=== PATIENT | male | born 1995 | race Caucasian/White ===

== ENCOUNTER 2020-03-31 14:12 | Outpatient (REF) | payer OTHER, SELFPAY | END 2020-03-31 14:13 | disposition home or self-care (01) | LOC: HO.HMGCLDS 14:12 | PROVIDERS: PCP Internal Medicine; Visit Provider Internal Medicine | DX: Z20.828 Contact with and (suspected) exposure to other viral communicable diseases (principal) | CPT/HCPCS: C9803; U0003 ==

== ENCOUNTER 2020-07-25 13:22 | Outpatient (REF) | payer OTHER, SELFPAY ==
[2020-07-25 16:57] LABS: Alanine Aminotransferase 76 U/L (0-40); Aspartate Amino Transferase 38 U/L (5-37); Cholesterol 221 mg/dL; HDL Cholesterol 37 mg/dL; LDL Cholesterol Calculated 153 mg/dl; Triglycerides 159 mg/dL
== END 2020-07-25 13:23 | disposition home or self-care (01) ==
LOC: HO.HMGCLDS 13:22
PROVIDERS: PCP Internal Medicine; Visit Provider Internal Medicine
DX: E78.2 Mixed hyperlipidemia (principal); E06.3 Autoimmune thyroiditis
CPT/HCPCS: 36415; 80061; 84450; 84460

== ENCOUNTER 2020-09-17 14:19 | Outpatient (REF) | payer OTHER, SELFPAY ==
[2020-09-17 17:02] LABS: Alanine Aminotransferase 71 U/L (0-40); Aspartate Amino Transferase 35 U/L (5-37); Cholesterol 257 mg/dL; HDL Cholesterol 41 mg/dL; LDL Cholesterol Calculated 195 mg/dl; Triglycerides 106 mg/dL
[2020-09-17 17:25] LABS: TSH reflex Free T4 1.59 uIU/mL (0.32-4.0)
[2020-09-18 03:49] LABS: SARS COV2 IgG Negative (Negative)
[2020-09-18 10:36] LABS: Thyroid Peroxidase Antibodies 46 IU/mL (<9)
== END 2020-09-17 14:20 | disposition home or self-care (01) ==
LOC: HO.HMGCLDS 14:19
PROVIDERS: PCP Internal Medicine; Visit Provider Internal Medicine
DX: Z20.822 Contact with and (suspected) exposure to COVID-19 (principal); E66.9 Obesity, unspecified; E78.2 Mixed hyperlipidemia; Z86.39 Personal history of other endocrine, nutritional and metabolic disease
CPT/HCPCS: 36415; 80061; 84443; 84450; 84460; 86376; 86769

== ENCOUNTER 2021-01-20 13:45 | Outpatient (REF) | payer OTHER, SELFPAY ==
[2021-01-20 17:18] LABS: Alanine Aminotransferase 54 U/L (0-40); Albumin Level 4.7 g/dL (3.5-5.0); Alkaline Phosphatase 36 U/L (39-117); Anion Gap 15 (12-20); Aspartate Amino Transferase 28 U/L (5-37); Bilirubin Total 1.3 mg/dL (0.0-1.0); Blood Urea Nitrogen 10 mg/dL (9-16); Calcium 9.5 mg/dL (8.4-10.2); Carbon Dioxide 25 mmol/L (22-29); Chloride 106 mmol/L (96-108); Cholesterol 191 mg/dL; Estimated Glomerular Filt Rate > 60; Glucose Fasting 85 mg/dL (60-99); HDL Cholesterol 39 mg/dL; LDL Cholesterol Calculated 127 mg/dl; Potassium 4.5 mmol/L (3.3-5.1); Sodium 141 mmol/L (135-145); Total Protein 7.6 g/dL (6.5-8.0); Triglycerides 125 mg/dL
[2021-01-20 17:38] LABS: Free T4 (Free Thyroxine) 0.98 ng/dL (0.71-1.85); Thyroid Stimulating Hormone 1.06 uIU/mL (0.32-4.0)
[2021-01-22 04:40] LABS: Thyroid Peroxidase Antibodies 39 IU/mL (<9)
== END 2021-01-20 13:46 | disposition home or self-care (01) ==
LOC: HO.HMGCLDS 13:45
PROVIDERS: PCP Internal Medicine; Visit Provider Internal Medicine
DX: E03.9 Hypothyroidism, unspecified (principal); E66.9 Obesity, unspecified; E78.5 Hyperlipidemia, unspecified; Z86.39 Personal history of other endocrine, nutritional and metabolic disease
CPT/HCPCS: 36415; 80053; 80061; 84439; 84443; 86376

== ENCOUNTER 2021-04-17 12:39 | Outpatient (REF) | payer OTHER, SELFPAY ==
[2021-04-17 14:19] LABS: Alanine Aminotransferase 48 U/L (0-40); Aspartate Amino Transferase 22 U/L (5-37); Cholesterol 183 mg/dL; HDL Cholesterol 40 mg/dL; LDL Cholesterol Calculated 122 mg/dl; Triglycerides 109 mg/dL
== END 2021-04-17 12:40 | disposition home or self-care (01) ==
LOC: HO.HMGCLDS 12:39
PROVIDERS: PCP Internal Medicine; Visit Provider Internal Medicine
DX: E78.5 Hyperlipidemia, unspecified (principal); E66.9 Obesity, unspecified; R05.8 Other specified cough; J45.909 Unspecified asthma, uncomplicated; Z23 Encounter for immunization
CPT/HCPCS: 36415; 80061; 84450; 84460

== ENCOUNTER 2021-06-09 12:48 | Outpatient (REF) | payer OTHER, SELFPAY ==
--- NOTE | 2021-06-09 17:31 | PFT_ITS ---
Forced vital capacity, FEV1, FEF 25-75 are all normal. MVV is 79, which is slightly decreased. Post bronchodilator therapy, there is no significant change. Total lung capacity 103 and residual volume 77. Diffusion capacity 96%. CONCLUSION: Normal pulmonary function test. No evidence of obstructive or restrictive pulmonary disorder. MD ESTHER Renee/MODL / [id number]
== END 2021-06-09 12:49 | disposition home or self-care (01) ==
LOC: HO.RESP 12:48
PROVIDERS: PCP Internal Medicine; Visit Provider Internal Medicine
DX: R05.8 Other specified cough (principal); J45.909 Unspecified asthma, uncomplicated
CPT/HCPCS: 94060; 94727; 94729

== ENCOUNTER 2023-11-02 11:04 | Outpatient (AMB) | payer OTHER, SELFPAY ==
--- NOTE | 2023-11-02 11:15 | MHC.OFFWIV ---
Intake Vital Signs 11/02/23 11:16 Height 6 ft 2 in Weight 252 lb BMI 32.4 BP 122/80 Blood Pressure Location Rt brachial Position Sitting Pulse 73 Pulse Source Pulse Oximeter Temp 98.2 F Temp Source Oral Pulse Oximetry (%) 98 Oxygen Delivery Method Room Air Intake Visit Reasons: upper back pain Intake Note: pt c/o upper back pain Patient Tobacco Use Status: Never used Tobacco Allergies aloe [ALOE] Allergy (Mild, Verified 11/02/23 11:16) ITCHY SKIN WHEN APPLIED TO SUN BURN Do you need a note to return to daycare/school/sports/work: No HPI HPI Comments History of Present Illness Details This is a 27-year-old male with a past medical history of hyperlipidemia presenting for evaluation of right upper back pain that he has had since Tuesday. 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 Tuesday evening the patient developed a discomfort in his right upper back that he describes as an aching sensation that is worse when he takes a deep breath. Patient denies having any fevers, chills, cough, shortness breath, chest pain or abdominal pain. Patient has not taken any medication for treatment of this aching pain. [facility] Medical History Chronic rhinitis Deviated nasal septum Seasonal allergies Dyslipidemia H/O Mima thyroiditis Exposure to COVID-19 virus Obesity (BMI 30.0-34.9) Surgical History Hx of appendectomy Family History Father Medical history non-contributory Mother COPD (chronic obstructive pulmonary disease) Diabetes mellitus Hyperlipidemia Lung nodules Depression Sister No problems noted. 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 Current occupational exposures/hazards: No Review of Systems Const All systems reviewed & are unremarkable except as noted in HPI and below Denies chills, Denies fatigue and Denies fever(s) Eyes Reports no additional complaints ENT Reports no additional complaints Card Reports no additional complaints Resp Reports no additional complaints GI Reports no additional complaints Reports no additional complaints Musc Reports back pain (right upper) Skin/Breast Reports system reviewed and no additional complaints, except as documented Neuro Reports no additional complaints Psych Reports no additional complaints Endo Reports no additional complaints and Denies fatigue Physical Exam Vital Signs: Last Vital Signs Temp 98.2 F 11/02/23 11:16 Pulse 73 11/02/23 11:16 BP 122/80 11/02/23 11:16 Pulse Ox 98 11/02/23 11:16 Oxygen Delivery Method Room Air 11/02/23 11:16 BMI result Body Mass Index 32.4 Patient is afebrile and is not hypoxic. Const General: cooperative, healthy appearing, comfortable, no acute distress, well developed, alert, awake and Physically active Nutritional Appearance: well nourished Orientation/consciousness: patient oriented x3 Limitations: no limitations General: Yes no CVA tenderness Back/Spine/Pelvis Back: no CVA tenderness Cervical Spine: normal cervical lordosis Thoracic/Lumbar Spine: thoracic and lumbar spine normal to inspection, paraspinal muscle tenderness (right medial rhomboid musculature) on the right, No thoracic spinal tenderness and No lumbar spinal tenderness Skin General skin exam: no rashes or lesions noted Neuro General: patient oriented x3 Gait exam (Neuro): Normal gait present Motor exam (neuro): 5/5 motor strength present throughout (upper extremities bilaterally) Psych Appearance: grossly normal Mental Status: mental status grossly normal Affect: Anxious affect present Insight: Good insight present (Psych) Judgement: Good judgement present (Psych) Assessment & Plan Assessment & Plan (1) Rhomboid muscle strain: Comment: There is no bony pain and no evidence of a fever or hypoxia and therefore imaging will be deferred at this time. Code(s): S29.012A - Strain of muscle and tendon of back wall of thorax, initial encounter Qualifiers: Encounter type: initial encounter Qualified Code(s): S29.012A - Strain of muscle and tendon of back wall of thorax, initial encounter Plan: Naprosyn 500 mg q.12 hours x7 days. Patient will follow up with his primary care provider if his symptoms are not improving in 7-10 days. Medications: New naproxen (Naprosyn) 500 mg PO BID 20 tabs 0RF Coding Level of Care Code Est Pt Level 3 (46840) Diagnoses Strain of rhomboid muscle, initial encounter S29.012A Encounter type: initial encounter Time Spent (min) 20
[2023-11-02 11:16] VITALS: BP 122/80; PULSE 73; TEMP 36.8; O2SAT 98; BMI 32.4
== END 2023-11-02 12:08 | disposition home or self-care (01) ==
PROVIDERS: PCP Internal Medicine; Visit Provider Physician Assistant
DX: S29.012A Strain of muscle and tendon of back wall of thorax, initial encounter (principal)
CPT/HCPCS: 99213

== ENCOUNTER 2023-11-13 19:23 | Emergency (ER) | payer OTHER, SELFPAY ==
--- NOTE | ~2023-11-13 | CT_ITS ---
EXAMINATION: CT ABDOMEN AND PELVIS WITHOUT CONTRAST CLINICAL INFORMATION: Lower abdominal, right flank pain COMPARISON: None available. TECHNIQUE: Multidetector volumetric imaging was performed from the superior aspect of the liver through the pubic symphysis. Sagittal and coronal reformatted images were obtained on the technologist's workstation. This CT examination was performed using dose optimization techniques as appropriate, variously including the following: *Automated exposure control *Adjustment of mA and/or kV according to patient size (this includes techniques or standardized protocols for targeted exams where dose is matched to indication/reason for exam; i.e. extremities or head) *Use of iterative reconstruction technique DLP: 738 mGy-cm FINDINGS: LUNG BASES: Unremarkable. ABDOMINAL AND PELVIC WALL: Unremarkable. LIVER AND BILIARY TREE: Hepatic steatosis. Liver is enlarged measuring 17.49 m in the craniocaudal dimension. GALLBLADDER: Unremarkable. PANCREAS: Unremarkable. SPLEEN: Unremarkable. ADRENAL GLANDS: Unremarkable. KIDNEYS AND URETERS: Unremarkable. GASTROINTESTINAL TRACT: Colonic diverticulosis no findings of diverticulitis. Appendix is surgically absent. VASCULAR: Unremarkable. LYMPH NODES/PERITONEUM: No lymphadenopathy. FREE FLUID: None. BLADDER: Unremarkable. PELVIC VISCERA: Unremarkable. OSSEOUS STRUCTURES: Unremarkable. CT/CT abdomen pelvis wo IV con IMPRESSION: * No acute intra-abdominal abnormality. * Hepatomegaly and hepatic steatosis.
[2023-11-13 19:32] VITALS: BP 143/84; PULSE 84; RESP 18; TEMP 36.5; O2SAT 97; BMI 32.5
--- NOTE | 2023-11-13 19:34 | ED.GENADULT ---
HPI - General Adult General Chief complaint: Abdominal Pain Stated complaint: abdominal pain Time Seen by Provider: 11/13/23 22:16 Source: patient Mode of arrival: ambulatory Limitations: no limitations History of Present Illness ED Provider: DR. Atkins HPI narrative: 27-year-old male presented for evaluation of lower abdominal pain. Started about 4 days ago localized to the right lower quadrant area, pain now is more diffuse to lower abdomen has been constant for the past 4 days and progressively getting worse, pain now is radiating to the right flank area, no dysuria, no frequency urination, no hematuria, no fever, no chills, no urethral discharge, sexually not active. No nausea, no vomiting, no diarrhea, last bowel movement was this morning, passing flatus. Patient was evaluated recently at a walk-in clinic for pleuritic chest pain and was diagnosed with musculoskeletal pain that is improved now, no CP, no SOB. History of appendectomy in 2018. Related Data Home Medications ?Medication ?Instructions ?Recorded ?Confirmed epinephrine 0.3 mg/0.3 mL ml IM 11/02/23 injection, auto-injector Previous Rx's ?Medication ?Instructions ?Recorded naproxen 500 mg tablet (Naprosyn) 500 mg PO BID #20 tabs 11/02/23 Allergies Allergy/AdvReac Type Severity Reaction Status Date / Time aloe [ALOE] Allergy Mild ITCHY SKIN Verified 11/13/23 19:35 WHEN APPLIED TO SUN BURN Review of Systems Review of Systems: All other systems are reviewed and are negative Constitutional: Reports as per HPI and Reports no additional constitutional complaints Eyes: Reports as per HPI and Reports no additional eye complaints Reports system reviewed and no additional complaints, except as documented Cardiovascular: Reports as per HPI and Reports no additional cardiovascular complaints Respiratory: Reports as per HPI and Reports no additional respiratory complaints Gastrointestinal: Reports as per HPI and Reports no additional gastrointestinal complaints Genitourinary: Reports no additional female genitourinary complaints Musculoskeletal: Reports no additional musculoskeletal complaints Skin/Breast: Reports system reviewed and no additional complaints, except as docu Psychiatric: Reports no additional psychiatric complaints Endocrine: Reports no additional endocrine complaints Hematologic/Lymphatic: Reports no additional hematologic/lymphatic complaints Allergic/Immunologic: Reports no additional allergic/immunologic complaints Reports system reviewed and no additional complaints, except as documented and Reports Abnormal speech present [facility] Past Medical History Medical History Chronic rhinitis Deviated nasal septum Seasonal allergies Dyslipidemia H/O Mima thyroiditis Exposure to COVID-19 virus Obesity (BMI 30.0-34.9) Surgical History Hx of appendectomy Family History Family History Father Medical history non-contributory Mother COPD (chronic obstructive pulmonary disease) Diabetes mellitus Hyperlipidemia Lung nodules Depression Sister No problems noted. Social History Social History Housing: Apartment Alcohol intake: current Alcohol intake frequency: holidays/special occasions only Patient Tobacco Use Status: Never used Tobacco Smoked in Last 30 Days: No Second Hand Smoke Exposure: Yes Use of substances other than those prescribed or required for medical reasons: Yes Substance Use Type: Marijuana Substance Use Frequency: Chronic Longstanding Advance Directives: No Advance Directives Information Provided: No Do you have a plan to hurt others: No Plan Current occupational status: employed Current occupation: [employer] Current occupational exposures/hazards: No Physical Exam ED Vital Signs: Vital Signs - 24 hr 11/13/23 19:32 11/13/23 20:03 Temperature 97.7 F 97.6 F Pulse Rate 84 82 Respiratory Rate 18 17 Blood Pressure 143/84 H 138/76 Pulse Oximetry 97 97 Oxygen Delivery Method Room Air Room Air BMI result Body Mass Index 32.5 Vital signs have been reviewed and appear to be correct. Blood pressure elevated. Heart rate normal. Respiratory rate normal. Temperature normal. Oxygen saturation normal. Appearance: Alert. Oriented X3. No acute distress. Head: Normal external exam. Normocephalic. Atraumatic. No Stoner signs noted. No raccoon eyes noted Eyes: PERRLA. EOMI. Conjunctiva and sclera normal. Eyelids normal. ENT: TM's Normal. Pharynx normal. Uvula midline. Moist mucous membranes. No trismus noted. No drooling noted. No muffled voice noted. Neck: Normal inspection. Neck supple. FROM. No adenopathy. Thyroid Normal. No meningeal signs. No neck mass noted. CVS: Normal heart rate and rhythm. Heart sound normal. No murmurs noted. Pulses normal throughout. Respiratory: No respiratory distress. Painless inspiration. Breath sounds normal. No wheezes/rales/rhonchi noted. Chest nontender. No accessory muscle usage noted or decreased air movement noted. Abdomen: Soft, right lower quadrant abdominal tenderness, no rebound tenderness, no guarding. Bowel sounds normal in all 4 quadrants. No distention noted. No organomegaly noted. No visible injury noted. Back: No CVA tenderness. Full range of motion noted. Skin: Skin warm and dry. Normal skin color. Normal skin turgor. No rashes/lesions/lacerations noted. Extremities: No lower extremity edema. Extremities exhibit normal range of motion. Extremities nontender. Neuro: Oriented X 3. Cranial nerve exam: II-XII are grossly intact No motor deficit. No sensory deficit. Reflexes normal. Course Course Course Narrative: This is a rapid medical exam performed by Ricardo Moran NP: Additional HPI, ROS, PE not included below will be deferred to primary provider. Patient is a 27-year-old male with history of appendectomy, Mima's thyroiditis presenting to the ED with complaint of lower abdominal pain for the last 4 days. States began in RLQ and has since spread to LLQ as well. Denies fevers, nausea, vomiting, diarrhea or constipation. Denies hematochezia or melena. Denies recent strenuous activity. Plan: labs, UA Reevaluation(s) Reevaluation #1: Four days of abdominal pain, CT is unremarkable for acute intra-abdominal pathology. Labs are unremarkable. Will reassure, discharge and follow-up with PCP. Time: 22:33 Medical Decision Making Differential Diagnosis Differential Diagnoses: The differential diagnosis associated with the presentation includes (UTI, pyelonephritis, STDs, colitis, diverticulitis, pancreatitis, electrolyte derangement, severe anemia.) Admission/Observation Consideration of admission/observation: Escalation of care including admission/observation considered Lab Data MDM Lab Attestation statement: I reviewed the patient's lab results. 11/13/23 19:41 11/13/23 19:41 Labs: Lab Results 11/13/23 11/13/23 Range/Units 19:41 20:21 WBC 8.3 (4.8-10.8) X10*3/uL RBC 4.92 (4.60-5.80) X10*6/uL Hgb 14.2 (14.0-18.0) g/dl Hct 40.8 L (42.0-52.0) % MCV 82.9 (80.0-98.0) fL MCH 28.9 (27.0-33.0) pg MCHC 34.8 (31.0-36.0) g/dl RDW 12.4 (11.0-16.0) % Plt Count 263 (160-400) X10*3/uL MPV 10.7 (9.4-12.4) fL Immature Gran % (Auto) 0.2 (0.0-0.4) % Neut % (Auto) 54.8 (45-73) % Lymph % (Auto) 30.9 (20-40) % Graves % (Auto) 10.2 (2-11) % Eos % (Auto) 3.5 (0-4) % Baso % (Auto) 0.4 (0-2) % Lymph # (Auto) 2.6 (1.2-4.9) X10*3/uL Graves # (Auto) 0.8 (0.1-1.2) X10*3/uL Eos # (Auto) 0.3 (0.0-0.4) X10*3/uL Baso # (Auto) 0.0 (0.0-0.2) X10*3/uL Abs Immat Gran (auto) 0.02 (0.00-0.03) X10*3/uL Absolute Neuts (auto) 4.5 (2.0-8.3) x10*3/uL Absolute Nucleated RBC 0.000 (0.0-0.012) X10*3/uL Nucleated RBC % (auto) 0.0 (0.0-0.2) /100WBC Sodium 142 (135-145) mmol/L Potassium 4.0 (3.3-5.1) mmol/L Chloride 109 H (96-108) mmol/L Carbon Dioxide 25 (22-29) mmol/L Anion Gap 12 (12-20) BUN 12 (9-16) mg/dL Creatinine 0.85 (0.5-1.4) mg/dL Estim Creat Clear Calc 177.3 Estimated GFR > 60 Random Glucose 102 (60-115) mg/dL Calcium 9.2 (8.4-10.2) mg/dL Total Bilirubin 0.9 (0.0-1.0) mg/dL AST 22 (5-37) U/L ALT 38 (0-40) U/L Alkaline Phosphatase 31 L (39-117) U/L Total Protein 7.5 (6.5-8.0) g/dL Albumin 4.5 (3.5-5.0) g/dL Urine Color Yellow Urine Appearance Clear Urine pH 6.0 (5.0-9.0) Ur Specific [place] >= 1.030 H (1.005-1.025) Urine Protein Negative (Neg-Trace) mg/dL Urine Glucose (UA) Negative (Negative) mg/dL Urine Ketones Trace (Negative) mg/dL Urine Blood Negative (Negative) Urine Nitrite Negative (Negative) Ur Leukocyte Esterase Negative (Negative) Independent Interpretation I performed an independent interpretation of an: CT Scan (Abdomen and pelvis: No acute intra-abdominal pathology.) Radiology Impression Discussion of test interpretation with radiology: I have reviewed the radiologist's reading. Discharge Plan Discharge Clinical Impression: Abdominal pain Patient Disposition: Home, Self-Care Instructions: Abdominal Pain (ED) Prescriptions: No Action epinephrine 0.3 mg/0.3 mL auto-injector IM naproxen [Naprosyn] 500 mg tablet 500 mg PO BID Qty: 20 0RF Referrals: Fide Jackson MD [Primary Care Provider] - Print Language: Gambian
[2023-11-13 19:45] LABS: MANUAL DIFF FLAG NO
[2023-11-13 19:47] LABS: Basophils Percent Auto 0.4 % (0-2); Eosinophils Absolute Auto 0.3 X10*3/uL (0.0-0.4); Eosinophils Percent Auto 3.5 % (0-4); Hematocrit 40.8 % (42.0-52.0); Hemoglobin 14.2 g/dl (14.0-18.0); Imm Gran Abs Auto 0.02 X10*3/uL (0.00-0.03); Imm Gran Pct Auto 0.2 % (0.0-0.4); Lymphocytes Absolute Auto 2.6 X10*3/uL (1.2-4.9); Lymphocytes Percent Auto 30.9 % (20-40); Mean Corpuscular HGB Conc 34.8 g/dl (31.0-36.0); Mean Corpuscular Hemoglobin 28.9 pg (27.0-33.0); Mean Corpuscular Volume 82.9 fL (80.0-98.0); Mean Platelet Volume 10.7 fL (9.4-12.4); Monocytes Absolute Auto 0.8 X10*3/uL (0.1-1.2); Monocytes Percent Auto 10.2 % (2-11); Neutrophils Absolute Auto 4.5 x10*3/uL (2.0-8.3); Neutrophils Percent Auto 54.8 % (45-73); Platelet Count 263 X10*3/uL (160-400); Red Blood Count 4.92 X10*6/uL (4.60-5.80); Red Cell Distribution Width 12.4 % (11.0-16.0); White Blood Count 8.3 X10*3/uL (4.8-10.8)
[2023-11-13 20:03] VITALS: BP 138/76; PULSE 82; RESP 17; TEMP 36.4; O2SAT 97
[2023-11-13 20:04] LABS: Alanine Aminotransferase 38 U/L (0-40); Albumin Level 4.5 g/dL (3.5-5.0); Alkaline Phosphatase 31 U/L (39-117); Anion Gap 12 (12-20); Aspartate Amino Transferase 22 U/L (5-37); Bilirubin Total 0.9 mg/dL (0.0-1.0); Blood Urea Nitrogen 12 mg/dL (9-16); Calcium 9.2 mg/dL (8.4-10.2); Carbon Dioxide 25 mmol/L (22-29); Chloride 109 mmol/L (96-108); Creatinine Clr Calc Pharmacy 177.3; Estimated Glomerular Filt Rate > 60; Glucose Random 102 mg/dL (60-115); Sodium 142 mmol/L (135-145); Total Protein 7.5 g/dL (6.5-8.0)
[2023-11-13 20:42] LABS: Appearance Urine Clear; Color Urine Yellow; Glucose Urine UA Negative (Negative); Leukocyte Esterase Urine Negative (Negative); Nitrite Urine Negative (Negative); Specific Gravity - Urine >= 1.030 (1.005-1.025); Urine Blood Negative (Negative); Urine Ketones Trace mg/dL (Negative); Urine Protein Negative (Neg-Trace)
[2023-11-13 22:35] VITALS: BP 123/71; PULSE 59; RESP 15; TEMP 36.7; O2SAT 95
[2023-11-13 22:48] LABS: Lipase 16 U/L (8-78)
[2023-11-13 23:51] VITALS: BP 123/71; PULSE 59; RESP 15; TEMP 36.7; O2SAT 95
== END 2023-11-13 23:52 | disposition home or self-care (01) ==
PROVIDERS: Registered Nurse Emergency; Emergency Provider Emergency Medicine; PCP Internal Medicine
DX: R10.31 Right lower quadrant pain (principal); Z79.899 Other long term (current) drug therapy
CPT/HCPCS: 36415; 74176; 80053; 81003; 83690; 85025; 99284

== ENCOUNTER 2023-11-15 15:03 | Outpatient (AMB) | payer OTHER, SELFPAY ==
--- NOTE | 2023-11-15 15:08 | MHC.OFFWIV ---
Intake Vital Signs 11/15/23 15:09 Height 6 ft 2 in Weight 255 lb BMI 32.7 BP 112/80 Blood Pressure Location Rt brachial Position Sitting Pulse 68 Pulse Source Pulse Oximeter Temp 98.4 F Temp Source Oral Pulse Oximetry (%) 98 Oxygen Delivery Method Room Air Intake Visit Reasons: EP- abdominal soreness Intake Note: pt c/o abdominal pain Patient Tobacco Use Status: Never used Tobacco Allergies aloe [ALOE] Allergy (Mild, Verified 11/15/23 15:09) ITCHY SKIN WHEN APPLIED TO SUN BURN Do you need a note to return to daycare/school/sports/work: No HPI HPI Comments History of Present Illness Details Patient is complaining of 6 days ago localized to the left and right lower abdomen, which is progressively getting worse. Patient denies dysuria, frequency urination, hematuria, fever, chills, urethral discharge, sexually not active, he also denies nausea and vomiting. He does admit to 2 days of diarrhea but denies any bloody or black stools, he does state he is passing flatus. He was evaluated at the [facility] Emergency Department 2 days ago where he had a full set of labs, urinalysis and abdominal and pelvic CT scan. Everything was within normal limits and showed no acute issues. He was discharged with instructions to follow up with his PCP. He states the pain continues so he came to the walk-in clinic today. He also states he has a history of appendectomy in 2018. 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 He denies any new workout regimen., in fact he states he has been taking a break from the gym recently. He also states he was given a prescription for an NSAID for some shoulder pain or back pain but he had not taken that in quite a few days. [facility] Medical History Chronic rhinitis Deviated nasal septum Seasonal allergies Dyslipidemia H/O Mima thyroiditis Exposure to COVID-19 virus Obesity (BMI 30.0-34.9) Surgical History Hx of appendectomy Family History Father Medical history non-contributory Mother COPD (chronic obstructive pulmonary disease) Diabetes mellitus Hyperlipidemia Lung nodules Depression Sister No problems noted. 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 Current occupational exposures/hazards: No Review of Systems Const All systems reviewed & are unremarkable except as noted in HPI and below Physical Exam Vital Signs: Last Vital Signs Temp 98.4 F 11/15/23 15:09 Pulse 68 11/15/23 15:09 BP 112/80 11/15/23 15:09 Pulse Ox 98 11/15/23 15:09 Oxygen Delivery Method Room Air 11/15/23 15:09 BMI result Body Mass Index 32.7 Const General: cooperative, healthy appearing, comfortable, no acute distress and well developed Orientation/consciousness: patient oriented x3 Limitations: no limitations HEENT Head: Yes normal to inspection Ears: hearing grossly normal bilaterally General nose exam: Normal external nose present Face and sinus: Yes normal facial exam Eyes General: appearance normal, both eyes and all related structures Neck Neck: Yes normal visual inspection and Yes full ROM Resp Effort & Inspection: normal respiratory effort and able to speak in complete sentences GI Inspection: Yes normal to inspection Palpation (GI): Soft to palpation and Tenderness to palpation present (GI) (slight) suprapubicly; Avalos's sign negative Skin General skin exam: no rashes or lesions noted Neuro General: patient oriented x3 Extrem General: Yes normal to inspection Results AMB Urinalysis, Automated UA Leukoctes 0 Luis/uL Last Edit by GHAZAL Salamanca on 11/15/23 15:28 UA Nitrite Negative Last Edit by GHAZAL Salamanca on 11/15/23 15:28 UA Urobilinogen 0.2 mg/dL Last Edit by GHAZAL Salamanca on 11/15/23 15:28 UA Protein 0 mg/dL Last Edit by GHAZAL Salamanca on 11/15/23 15:28 UA pH 6.0 Last Edit by GHAZAL Salamanca on 11/15/23 15:28 UA Blood 0 Riley/uL Last Edit by GHAZAL Salamanca on 11/15/23 15:28 UA Specific [place] 1.015 Last Edit by GHAZAL Salamanca on 11/15/23 15:28 UA Ketone Negative Last Edit by GHAZAL Salamanca on 11/15/23 15:28 UA Bilirubin 0 mg/dL Last Edit by GHAZAL Salamanca on 11/15/23 15:28 UA Glucose 0 mg/dL Last Edit by GHAZAL Salamanca on 11/15/23 15:28 Assessment & Plan Assessment & Plan (1) Abdominal pain: Code(s): R10.9 - Unspecified abdominal pain Qualifiers: Abdominal location: lower abdomen, unspecified Qualified Code(s): R10.30 - Lower abdominal pain, unspecified Plan: UA negative again today. Explained to patient it could be a GI issue versus musculoskeletal but his ER visit ruled out all the emergent things. His vital signs are stable, there was nothing remarkable about his physical exam. Recommended he try the dicyclomine, if this does not improve his abdominal pain, then it is probably musculoskeletal and he should try Voltaren gel with the prescription NSAID we sent to his pharmacy last week. Recommended he follow up with his PCP if no resolution in symptoms. Reassured patient it is most likely musculoskeletal. However, he is unable to articulate the pain to decipher the difference. Plan See above Orders: Orders AMB Urinalysis Automated Today Z13.9 - Encounter for screening, unspecified Medications: New dicyclomine 20 mg (2 x 10 mg) PO QID PRN 14 caps 0RF abdominal pain Coding Level of Care Code Est Pt Level 4 (75703) Diagnoses Lower abdominal pain R10.30 Abdominal location: lower abdomen, unspecified
[2023-11-15 15:09] VITALS: BP 112/80; PULSE 68; TEMP 36.9; O2SAT 98; BMI 32.7
== END 2023-11-15 15:38 | disposition home or self-care (01) ==
PROVIDERS: PCP Internal Medicine; Visit Provider Physician Assistant
DX: Z13.9 Encounter for screening, unspecified (principal); R10.30 Lower abdominal pain, unspecified
CPT/HCPCS: 81003; 99214

== ENCOUNTER 2024-05-09 15:50 | Outpatient (REF) | payer OTHER, SELFPAY ==
[2024-05-10 11:50] LABS: Influenza A PCR POSITIVE (Negative); Influenza B PCR NEGATIVE (Negative); Resp Syncy Virus RNA Qual PCR NEGATIVE (Negative); SARS COV2 PCR INHOUSE NEGATIVE (Negative)
== END 2024-05-09 15:51 | disposition home or self-care (01) ==
LOC: HO.LAB 15:50
PROVIDERS: PCP Internal Medicine; Visit Provider Physician Assistant
DX: R09.89 Other specified symptoms and signs involving the circulatory and respiratory systems (principal); B34.9 Viral infection, unspecified
CPT/HCPCS: 0241U; 99212